=== PATIENT | male | born 1970 | race Two or more races ===

== ENCOUNTER 2022-06-14 16:16 | Outpatient (CLI) | payer OTHER | END 2022-06-14 16:23 | disposition home or self-care (01) | LOC: RAD 16:16 | PROVIDERS: ATTEND Urology | DX: E11.9 Type 2 diabetes mellitus without complications (principal) ==

== ENCOUNTER 2022-06-17 13:24 | Outpatient (CLI) | payer OTHER | END 2022-06-17 13:33 | disposition home or self-care (01) | LOC: RAD 13:24 | PROVIDERS: ATTEND Urology | DX: N20.1 Calculus of ureter (principal) ==

== ENCOUNTER 2022-06-23 07:46 | Day surgery (SDC) | payer OTHER ==
[~2022-06-23 07:46] MED LIST: GLUMETZA500 MG PO; LEVOTHYR PO
== END 2022-06-23 16:15 | disposition home or self-care (01) ==
LOC: CIR.AMB 07:46
PROVIDERS: ATTEND Urology
DX: N20.1 Calculus of ureter (principal); E78.5 Hyperlipidemia, unspecified; E03.9 Hypothyroidism, unspecified; R73.03 Prediabetes

== ENCOUNTER 2022-06-28 14:51 | Outpatient (CLI) | payer OTHER | END 2022-06-28 15:00 | disposition home or self-care (01) | LOC: RAD 14:51 | PROVIDERS: ATTEND Urology | DX: N20.0 Calculus of kidney (principal) ==